=== PATIENT | female | born 1965 | race American Indian/Alaskan Native ===

== ENCOUNTER 2020-12-30 19:03 | Emergency (ER) | payer OTHER ==
[~2020-12-30] VITALS: Ht 170.2 cm; Wt 93.0 kg
[2020-12-30 19:58] LABS: PLATELET COUNT 111 K/uL (152-353)
[2020-12-30 20:05] LABS: POTASSIUM 2.7 mmol/L (3.6-5.2)
[2020-12-30 21:00] VITALS: BP 123/80; TEMP 98.3
== END 2020-12-30 21:00 | disposition home or self-care (01) ==
LOC: ED 19:03
PROVIDERS: Hospitalist
DX: R19.7 Diarrhea, unspecified (principal); R11.2 Nausea with vomiting, unspecified
CPT/HCPCS: 80053; 85027; 99283

== ENCOUNTER 2021-01-04 16:21 | Inpatient (IN) | payer OTHER ==
[2021-01-04] VITALS (7 sets, daily range): BP systolic 100–114; BP diastolic 50–71; TEMP 100
[~2021-01-04] VITALS: Ht 170.2 cm; Wt 93.0 kg
[2021-01-04 18:00] LABS: PLATELET COUNT 203 K/uL (152-353)
[2021-01-04 18:58] LABS: PARTIAL THROMBOPLASTIN TIME 25.4 SECONDS (24.5-33.6)
[2021-01-04 19:03] LABS: POTASSIUM 3.5 mmol/L (3.6-5.2)
[2021-01-05] VITALS (14 sets, daily range): BP systolic 90–122; BP diastolic 48–70; TEMP 97.7–103.1; Ht 170.2 cm; Wt 93.0 kg
[2021-01-05 07:41] LABS: PLATELET COUNT 140 K/uL (152-353)
[2021-01-05 08:37] LABS: POTASSIUM 3.6 mmol/L (3.6-5.2)
[2021-01-06] VITALS: BP 102/65; TEMP 99
[2021-01-06 04:00] VITALS: BP 103/75; TEMP 97.8
[2021-01-06 04:03] LABS: PLATELET COUNT 148 K/uL (152-353)
[2021-01-06 04:30] LABS: POTASSIUM 3.3 mmol/L (3.6-5.2)
[2021-01-06 08:00] VITALS: BP 105/67; TEMP 98.6
[2021-01-06 12:00] VITALS: BP 142/83; TEMP 98.1
[2021-01-06 16:00] VITALS: BP 151/80; TEMP 98.1
[2021-01-06 20:00] VITALS: BP 115/76; TEMP 99.4
[2021-01-07] VITALS: BP 128/83; TEMP 98
[2021-01-07 04:00] VITALS: BP 120/82; TEMP 97.6
[2021-01-07 05:25] LABS: PLATELET COUNT 164 K/uL (152-353)
[2021-01-07 06:05] LABS: POTASSIUM 4.2 mmol/L (3.6-5.2)
[2021-01-07 08:00] VITALS: BP 137/87; TEMP 98.1
[2021-01-07 12:00] VITALS: BP 135/81; TEMP 97.8
[2021-01-07 16:00] VITALS: BP 117/73; TEMP 97.5
[2021-01-07 20:00] VITALS: BP 140/81; TEMP 98.1
[2021-01-08 00:10] VITALS: BP 123/76; TEMP 97.7
[2021-01-08 04:12] VITALS: BP 134/75; TEMP 98.2
[2021-01-08 05:57] LABS: PLATELET COUNT 179 K/uL (152-353)
[2021-01-08 06:17] LABS: POTASSIUM 3.1 mmol/L (3.6-5.2)
[2021-01-08 08:00] VITALS: BP 135/86; TEMP 98.7
[2021-01-08 12:00] VITALS: BP 145/91; TEMP 98.1
== END 2021-01-08 17:21 | disposition home or self-care (01) | DRG 177 ==
LOC: ED 16:21 → MED/SURG 20:35
PROVIDERS: Hospitalist; ADMIT Family Medicine; ATTEND Family Medicine
DX: U07.1 COVID-19 (principal); J12.82 Pneumonia due to coronavirus disease 2019; N17.8 Other acute kidney failure; I10 Essential (primary) hypertension
CPT/HCPCS: 36415; 36600; 80053; 82550; 82553; 82728; 82805; 83605; 83735; 83880; 84100; 84484; 85027; 85610; 85730; 86140; 87040; 87635; 93005; 94667; 94668; 94760; 96360; 96374; 99284; J0132; J0456; J1100; J1650; J1956; J2405; U0003

== ENCOUNTER 2021-01-09 08:29 | Outpatient (CLI) | payer OTHER ==
[~2021-01-09] VITALS: Ht 170.2 cm; Wt 91.6 kg
== END 2021-01-09 23:00 | disposition home or self-care (01) ==
LOC: INF 08:29
PROVIDERS: ATTEND Family Medicine
DX: Z23 Encounter for immunization (principal); U07.1 COVID-19
CPT/HCPCS: 96365